=== PATIENT | male | born 1945 | race Caucasian/White ===

== ENCOUNTER 2017-07-22 12:07 | Inpatient (IN) | payer OTHER ==
[2017-07-22] MEDS ORDERED: NS 1,000 ML IV ONE (12:49)
--- NOTE | 2017-07-22 12:53 | EDPHY ---
H & P Stated Complaint: Fever, h/a,ear pain x 4 days; concern because recent dental implant vs flu Time Seen by Provider: 07/22/17 12:40 HPI/ROS: CHIEF COMPLAINT: Fever, body aches HISTORY OF PRESENT ILLNESS: Patient is a 71-year-old man with a history of colon cancer in remission, coronary artery disease and a previous PE who is still on Eliquis. He reports that on Monday he had a dental implant placed on the right maxillary side of his mouth. On Monday he started having body aches that he assumed were from being tense in the chair but then he developed a fever Monday and today. He states that his T-max was 105 degrees yesterday. He denies chest pain or shortness of breath or hemoptysis which she had with his previous PE. His Eliquis was held for the procedure for 4 days. He resumed on Monday. He has not had any leg pain or swelling. He also complains of headaches primarily in the frontal aspect of his head and both ears. He had sinus congestion on Monday but that resolved with nasal spray. He has not had a sore throat or cough. He was concerned that he might have the flu. He does not have any swelling or pain around the dental implant. He has diffuse muscle aches primarily in the back and large muscle groups but also some mild neck stiffness. REVIEW OF SYSTEMS: Constitutional: See HPI EENTM: See HPI denies: blurred vision, double vision, nose congestion Respiratory: denies: cough, shortness of breath Cardiac: denies: chest pain, irregular heart rate, lightheadedness, palpitations Gastrointestinal/Abdominal: denies: abdominal pain, diarrhea, nausea, vomiting, blood streaked stools Genitourinary: denies: dysuria, frequency, hematuria, pain Musculoskeletal: See HPI Skin: denies: lesions, rash, jaundice, bruising Neurological: denies: headache, numbness, paresthesia, tingling, dizziness, weakness Hematologic/Lymphatic: denies: blood clots, easy bleeding, easy bruising Immunologic/allergic: denies: HIV/AIDS, transplant EXAM: GENERAL: Well-appearing, well-nourished and in no acute distress. HEAD: Atraumatic, normocephalic. EYES: Pupils equal round and reactive to light, extraocular movements intact, sclera anicteric, conjunctiva are normal. ENT: Dental implant visible, no surrounding swelling. TMs normal, nares patent , oropharynx clear without exudates. Moist mucous membranes. NECK: Normal range of motion, supple without lymphadenopathy or JVD. LUNGS: Breath sounds clear to auscultation bilaterally and equal. No wheezes rales or rhonchi. HEART: Regular rate and rhythm without murmurs, rubs or gallops. ABDOMEN: Soft, nontender, normoactive bowel sounds. No guarding, no rebound. No masses appreciated. BACK: No CVA tenderness, no spinal tenderness, step-offs or deformities EXTREMITIES: Normal range of motion, no pitting or edema. No clubbing or cyanosis. NEUROLOGICAL: Cranial nerves II through XII grossly intact. Normal speech, normal gait. 5/5 strength, normal movement in all extremities, normal sensation PSYCH: Normal mood, normal affect. SKIN: Warm, dry, normal turgor, no visible rashes or lesions. Source: Patient, Family Exam Limitations: No limitations - Personal History Current Tetanus Diphtheria and Acellular Pertussis (TDAP): Unsure - Medical/Surgical History Hx Asthma: No Hx Chronic Respiratory Disease: No Hx Diabetes: No Hx Cardiac Disease: No Hx Renal Disease: No Hx Cirrhosis: No Hx Alcoholism: No Hx HIV/AIDS: No Hx Splenectomy or Spleen Trauma: No Other PMH: COLON CA-SX 2010-ON REMISSION,NO OTHER TXT. SILENT M.I.-2010 ON METOPROLOL.HTN,GOUT-ON MEDS.PNA.SINUS INFXN. PE - Social History Smoking Status: Never smoked Alcohol Use: Sober Drug Use: None Constitutional: Initial Vital Signs Temperature (C) 36.9 C 07/22/17 12:12 Heart Rate 88 07/22/17 12:12 Respiratory Rate 18 07/22/17 12:12 Blood Pressure 137/90 H 07/22/17 12:12 O2 Sat (%) 94 07/22/17 12:12 O2 Delivery Mode Room Air Allergies/Adverse Reactions: levofloxacin Allergy (Verified 07/22/17 17:36) Home Medications: Medication Instructions Recorded Allopurinol [Allopurinol 300 MG 300 mg PO HS 11/24/14 (RX)] Metoprolol Succinate Xr [Toprol Xl 25 mg PO DAILY@20 11/24/14 25 mg (*)] Acetaminophen [Tylenol 325mg (*)] 650 mg PO Q4 PRN MDD 3 grams 07/22/17 Amoxicillin Trihydrate 500 mg PO Q8H 07/22/17 [Amoxicillin] Apixaban [Eliquis] 2.5 mg PO BID 07/22/17 Atorvastatin Calcium [Lipitor 10 10 mg PO HS 07/22/17 mg (*)] Benzadrex (Propyylhexedrine 250mg) 2 inh EACHNARE Q2H PRN 07/22/17 Losartan Potassium [Cozaar 50 mg 50 mg PO HS 07/22/17 (*)] Olopatadine HCl [Patanase] 2 sprays EACHNARE DAILY PRN 07/22/17 Triamcinolone Acetonide [Nasacort] 2 sprays EACHNARE HS PRN 07/22/17 Medical Decision Making - Diagnostics EKG Interpretation: An EKG obtained and was read and documented in trace view. Please see trace view for full reading and report. , sinus rhythm with right bundle branch block , similar to previous Imaging Results: Imaging Impressions Chest X-Ray 07/22/17 12:50 Impression: Nothing acute identified. Head CT 07/22/17 12:54 Impression: Head CT normal for age. 2. CT of the Face, with contrast Indication: Fever, headache, ear pain, recent dental implant Technique: 0.625 mm thick collimated slices were obtained through the face from just below the mandible to above the frontal sinuses. 90 mL of Isovue-300 was injected intravenously without complication using a power injector. The data was reconstructed in the sagittal and coronal planes. Dose reduction techniques were utilized. Findings: There is a prominent beam hardening artifact in the posterior left maxilla related to dental work, that obscures the adjacent and local tissues. There are bilateral anterior maxillary tooth implants (#5 and #12) and mandibular teeth (#19 and #30) that appear intact. No soft tissue abscess is identified in the visible soft tissues. Overall mineralization looks normal. There is no upper cervical adenopathy. The maxillary and ethmoid sinuses are normally aerated. There are 2 retention cysts in the left sphenoid sinus. The right sphenoid sinus is normally aerated. Impression: No evidence for infection, with a caveat that a large area of the posterior left maxilla is obscured by left posterior mandibular dental hardware. Results called to Dr. Simon at 2:51 PM. General information for patients regarding this examination can be found at [email or web address]. If you have questions or comments about this report, please contact me at ([email or web address]) or [phone] (cell). Face CT 07/22/17 12:56 Impression: Head CT normal for age. 2. CT of the Face, with contrast Indication: Fever, headache, ear pain, recent dental implant Technique: 0.625 mm thick collimated slices were obtained through the face from just below the mandible to above the frontal sinuses. 90 mL of Isovue-300 was injected intravenously without complication using a power injector. The data was reconstructed in the sagittal and coronal planes. Dose reduction techniques were utilized. Findings: There is a prominent beam hardening artifact in the posterior left maxilla related to dental work, that obscures the adjacent and local tissues. There are bilateral anterior maxillary tooth implants (#5 and #12) and mandibular teeth (#19 and #30) that appear intact. No soft tissue abscess is identified in the visible soft tissues. Overall mineralization looks normal. There is no upper cervical adenopathy. The maxillary and ethmoid sinuses are normally aerated. There are 2 retention cysts in the left sphenoid sinus. The right sphenoid sinus is normally aerated. Impression: No evidence for infection, with a caveat that a large area of the posterior left maxilla is obscured by left posterior mandibular dental hardware. Results called to Dr. Simon at 2:51 PM. General information for patients regarding this examination can be found at [email or web address]. If you have questions or comments about this report, please contact me at [phone]([email or web address]) or [phone] (cell). Imaging: Discussed imaging studies w/ environmental services worker Radiologist ED Course/Re-evaluation: Patient's D-dimer is age adjusted negative. He also is not hypoxic, tachypneic , short of breath or having hemoptysis. 5:00 p.m. the patient's temperature is gone up to 39.5. The Tylenol he took this morning is wearing off. He is complaining of worsening headache. He is not a candidate for lumbar puncture currently because of the Eliquis. I recommended we treat him with antibiotics and admission and hold his Eliquis for possible LP tomorrow or the next day. He and his are agreeable with this plan. 5:15 p.m. I discussed the case with Dr. Zapata who will admit. Differential Diagnosis: Partial list of the Differential diagnosis considered include but were not limited to; viral meningitis, bacterial meningitis, sepsis, influenza and although unlikely based on the history and physical exam, I also considered pneumonia, urinary tract infection. I discussed these differential diagnoses and the plan with the patient as well as the usual and expected course. The patient understands that the diagnosis is provisional and that in medicine we are not always correct and that further workup is often warranted. Usual and customary warnings were given. All of the patient's questions were answered. The patient was instructed to return to the emergency department should the symptoms at all worsen or return, otherwise to followup with the physician as we discussed. - Data Points Laboratory Results: Laboratory Results 07/22/17 14:41 07/22/17 13:24 07/22/17 07/22/17 07/22/17 15:25 15:25 15:11 WBC RBC Hgb Hct MCV MCH MCHC RDW Plt Count MPV Neut % (Auto) Lymph % (Auto) [place] % (Auto) Eos % (Auto) Baso % (Auto) Nucleat RBC Rel Count Absolute Neuts (auto) Absolute Lymphs (auto) Absolute Monos (auto) Absolute Eos (auto) Absolute Basos (auto) Absolute Nucleated RBC Immature Gran % Immature Gran # PT INR APTT D-Dimer VBG Lactic Acid Sodium Potassium Chloride Carbon Dioxide Anion Gap BUN Creatinine Estimated GFR Glucose Calcium Total Bilirubin Conjugated Bilirubin Unconjugated Bilirubin AST ALT Alkaline Phosphatase Total Protein Albumin Urine Color YELLOW Urine Appearance CLEAR Urine pH 5.0 (5.0-7.5) Ur Specific [place] > 1.035 H (1.002-1.030) Urine Protein NEGATIVE (NEGATIVE) Urine Ketones NEGATIVE (NEGATIVE) Urine Blood NEGATIVE (NEGATIVE) Urine Nitrate NEGATIVE (NEGATIVE) Urine Bilirubin NEGATIVE (NEGATIVE) Urine Urobilinogen NEGATIVE EU EU (0.2-1.0) Ur Leukocyte Esterase NEGATIVE (NEGATIVE) Urine RBC 3-5 /hpf H /hpf (0-3) Urine WBC 1-3 /hpf /hpf (0-3) Ur Epithelial Cells TRACE /lpf /lpf (NONE-1+) Urine Mucus TRACE /lpf /lpf (NONE-1+) Urine Glucose NEGATIVE (NEGATIVE) Nasal Influenza A PCR NEGATIVE FOR FLU A (NEGATIVE) Nasal Influenza B PCR NEGATIVE FOR FLU B (NEGATIVE) Group A Strep Screen NEGATIVE (NEGATIVE) 07/22/17 07/22/17 07/22/17 14:41 13:24 13:24 WBC 9.35 10^3/uL 10^3/uL (3.80-9.50) RBC 5.02 10^6/uL 10^6/uL (4.40-6.38) Hgb 15.7 g/dL g/dL (13.7-17.5) Hct 45.5 % % (40.0-51.0) MCV 90.6 fL fL (81.5-99.8) MCH 31.3 pg pg (27.9-34.1) MCHC 34.5 g/dL g/dL (32.4-36.7) RDW 13.6 % % (11.5-15.2) Plt Count 157 10^3/uL 10^3/uL (150-400) MPV 10.4 fL fL (8.7-11.7) Neut % (Auto) 65.6 % % (39.3-74.2) Lymph % (Auto) 21.0 % % (15.0-45.0) [place] % (Auto) 10.7 % % (4.5-13.0) Eos % (Auto) 1.1 % % (0.6-7.6) Baso % (Auto) 0.9 % % (0.3-1.7) Nucleat RBC Rel Count 0.0 % % (0.0-0.2) Absolute Neuts (auto) 6.14 10^3/uL 10^3/uL (1.70-6.50) Absolute Lymphs (auto) 1.96 10^3/uL 10^3/uL (1.00-3.00) Absolute Monos (auto) 1.00 10^3/uL H 10^3/uL (0.30-0.80) Absolute Eos (auto) 0.10 10^3/uL 10^3/uL (0.03-0.40) Absolute Basos (auto) 0.08 10^3/uL 10^3/uL (0.02-0.10) Absolute Nucleated RBC 0.00 10^3/uL 10^3/uL (0-0.01) Immature Gran % 0.7 % % (0.0-1.1) Immature Gran # 0.07 10^3/uL 10^3/uL (0.00-0.10) PT INR APTT D-Dimer VBG Lactic Acid 1.2 mmol/L mmol/L (0.7-2.1) Sodium 139 mEq/L mEq/L (135-145) Potassium 4.4 mEq/L mEq/L (3.3-5.0) Chloride 99 mEq/L mEq/L (97-110) Carbon Dioxide 26 mEq/l mEq/l (22-31) Anion Gap 14 mEq/L mEq/L (8-16) BUN 17 mg/dL mg/dL (7-23) Creatinine 1.1 mg/dL mg/dL (0.7-1.3) Estimated GFR > 60 Glucose 95 mg/dL mg/dL (70-100) Calcium 9.4 mg/dL mg/dL (8.5-10.4) Total Bilirubin 1.2 mg/dL mg/dL (0.1-1.4) Conjugated Bilirubin 0.6 mg/dL H mg/dL (0.0-0.5) Unconjugated Bilirubin 0.6 mg/dL mg/dL (0.0-1.1) AST 39 IU/L IU/L (17-59) ALT 36 IU/L IU/L (21-72) Alkaline Phosphatase 41 IU/L IU/L (38-126) Total Protein 7.7 g/dL g/dL (6.3-8.2) Albumin 4.6 g/dL g/dL (3.5-5.0) Urine Color Urine Appearance Urine pH Ur Specific [place] Urine Protein Urine Ketones Urine Blood Urine Nitrate Urine Bilirubin Urine Urobilinogen Ur Leukocyte Esterase Urine RBC Urine WBC Ur Epithelial Cells Urine Mucus Urine Glucose Nasal Influenza A PCR Nasal Influenza B PCR Group A Strep Screen 07/22/17 13:24 WBC RBC Hgb Hct MCV MCH MCHC RDW Plt Count MPV Neut % (Auto) Lymph % (Auto) [place] % (Auto) Eos % (Auto) Baso % (Auto) Nucleat RBC Rel Count Absolute Neuts (auto) Absolute Lymphs (auto) Absolute Monos (auto) Absolute Eos (auto) Absolute Basos (auto) Absolute Nucleated RBC Immature Gran % Immature Gran # PT 13.8 SEC SEC (12.0-15.0) INR 1.04 (0.83-1.16) APTT 23.9 SEC SEC (23.0-38.0) D-Dimer 0.64 ug/mLFEU H ug/mLFEU (0.00-0.50) VBG Lactic Acid Sodium Potassium Chloride Carbon Dioxide Anion Gap BUN Creatinine Estimated GFR Glucose Calcium Total Bilirubin Conjugated Bilirubin Unconjugated Bilirubin AST ALT Alkaline Phosphatase Total Protein Albumin Urine Color Urine Appearance Urine pH Ur Specific [place] Urine Protein Urine Ketones Urine Blood Urine Nitrate Urine Bilirubin Urine Urobilinogen Ur Leukocyte Esterase Urine RBC Urine WBC Ur Epithelial Cells Urine Mucus Urine Glucose Nasal Influenza A PCR Nasal Influenza B PCR Group A Strep Screen Medications Given: Discontinued Medications Acetaminophen (Tylenol) 1,000 mg PO EDNOW ONE Stop: 07/22/17 17:02 Last Admin: 07/22/17 17:27 Dose: 1,000 mg Sodium Chloride (Ns) 1,000 mls @ 0 mls/hr IV EDNOW ONE; Wide Open PRN Reason: Protocol Stop: 07/22/17 12:50 Last Admin: 07/22/17 15:08 Dose: 1,000 mls Ceftriaxone Sodium 2 gm/ (Sterile Water) 20 mls @ 300 mls/hr IV EDNOW ONE Stop: 07/22/17 17:18 Last Admin: 07/22/17 17:27 Dose: 20 mls Departure - Departure Disposition: [facility] Clinical Impression: Fever Qualifiers: Fever type: unspecified Qualified Code(s): R50.9 - Fever, unspecified Headache Qualifiers: Headache type: unspecified Headache chronicity pattern: acute headache Intractability: not intractable Qualified Code(s): R51 - Headache Condition: Fair
--- NOTE | 2017-07-22 13:05 | CPEKG ---
Heart Rate: 75 RR Interval: 800 P-R Interval: 204 QRSD Interval: 146 QT Interval: 404 QTC Interval: 452 P [place]: 47 QRS [place]: -72 T Wave [place]: 4 EKG Severity - ABNORMAL ECG - EKG Impression: SINUS RHYTHM EKG Impression: RBBB AND LAFB EKG Impression: LATERAL INFARCT, OLD EKG Impression: Similar to previous Electronically Signed By: James Simon 22-Jul-2017 13:24:00
[2017-07-22 13:48] LABS: INR 1.04 (0.83-1.16); PROTIME(PATIENT) 13.8 SEC (12.0-15.0)
[2017-07-22] MEDS ORDERED: IOPAMIDOL (ISOVUE 370) 100 ML BTL IV ONE (13:56)
[2017-07-22] MEDS ORDERED: IOPAMIDOL (ISOVUE-300) 100 ML BTL ONE (13:56)
[2017-07-22 14:54] LABS: PLATELET COUNT 157 10^3/uL (150-400)
[2017-07-22] MEDS ORDERED: ACETAMINOPHEN 500 MG TAB PO ONE (17:01)
[2017-07-22] MEDS ORDERED: cefTRIAXone 2 GM in STERILE WATER INJ 20 ML IV ONE (17:15)
[2017-07-22] MEDS ORDERED: cefTRIAXone 1 GM/DEXTROSE 1 GM/50 ML BAG IV ONE (17:22)
[2017-07-22] MEDS ORDERED: ACETAMINOPHEN 500 MG TAB ONE (17:29)
[2017-07-22] MEDS ORDERED: ONDANSETRON 4 MG/2 ML VIAL IVP PRN (18:41)
[2017-07-22] MEDS ORDERED: oxyCODONE IR 5 MG TAB PO PRN (18:41)
[2017-07-22] MEDS ORDERED: ZOLPIDEM TARTRATE 5 MG TAB PO PRN (18:41)
[2017-07-22] MEDS ORDERED: PROMETHAZINE HCL 25 MG/ML INJ IVP PRN (18:41)
[2017-07-22] MEDS ORDERED: ONDANSETRON DISINTEGRATING 4 MG TAB PO PRN (18:41)
[2017-07-22] MEDS ORDERED: IBUPROFEN 200 MG TAB PO PRN (18:41)
[2017-07-22] MEDS ORDERED: OLOPATADINE HCL EACHNARE PRN (18:43)
[2017-07-22] MEDS ORDERED: TRIAMCINOLONE ACETONIDE EACHNARE PRN (18:43)
[2017-07-22] MEDS ORDERED: [UNRECOGNIZED DRUG - OTHER] EACHNARE PRN (18:43)
[2017-07-22] MEDS ORDERED: NS 1,000 ML IV SCH (18:45)
[2017-07-22] MEDS ORDERED: METOPROLOL SUCCINATE XR 25 MG TAB PO SCH (20:00)
--- NOTE | 2017-07-22 20:53 | GHP ---
[f rep st] HISTORY AND PHYSICAL DATE OF ADMISSION: 07/22/2017 CHIEF COMPLAINT: Fever. HISTORY OF PRESENT ILLNESS: This is a 71-year-old man, past medical history that includes hypertensi on and colon cancer who presents with 3 days of fever, generalized body aches and pains, and headache . The patient notes that this all began shortly after undergoing a dental implant procedure jimmie parnell. He notes that initially it was largely just body aches, which he assumed was due to being tense d uring the dental procedure. In the coming days, however, he began to develop fever with temperatures up to the mid 100s. He also had some generalized body aches and pains and generalized weakness and malaise. He notes he has also had relatively severe headache largely associated with the fevers. He denies shortness of breath, cough, urinary symptoms, abdominal pain, nausea, or vomiting. He did tr caitlyn a couple weeks ago to [place], but otherwise has not had any recent travel. He denies any u sual exposures to things like mosquitos, etc. that he is aware of. PAST MEDICAL HISTORY: Includes: 1. Hypertension. 2. Gout. 3. Colon cancer treated with surgery that did not require chemo or radiation. 4. PE. 5. Coronary artery disease. PAST SURGICAL HISTORY: 1. Recent dental implant. 2. Colon resection. FAMILY HISTORY: This was reviewed and is noncontributory. SOCIAL HISTORY: The patient drinks a few times per week. Denies history of ever smoking. No illici t's. REVIEW OF SYSTEMS: A 10-point review of systems obtained, negative except as per HPI. MEDICATIONS: Include: 1. Amoxicillin prescribed status post dental surgery. 2. Metoprolol. 3. Losartan. 4. Tylenol. 5. Triamcinolone. 6. Olopatadine. 7. Atorvastatin. 8. Eliquis. 9. Allopurinol. 10. Benzedrex. CLINICAL DATA: Labs reviewed and notable for a completely normal CBC. Coags are normal. Chemistry is unremarkable including LFTs. Urinalysis is unremarkable. IMAGING: Chest x-ray personally reviewed and interpreted, is showing no acute findings. Face and he ad CT are both unremarkable without any source of fever. EKG personally reviewed and interpreted, shows a right bundle branch block, left anterior fascicular block, and evidence for an old lateral infarct. ASSESSMENT AND PLAN: This is a 71-year-old man, past medical history that includes hypertension, col on cancer, and coronary artery disease, presenting with 3 days of fever, headache, and body aches and pains. 1. Fever without any localizing symptoms. He is nontoxic appearing, but states that he feels quite terrible. Plan was for LP to be performed, however, patient is currently on Eliquis and therefore th at was deferred. At this point, plan will be to monitor overnight and if fever continues and no othe r source is identified, proceed with a lumbar puncture in the morning. Suspect if this was a meningi tis, it would be more likely a viral meningitis given the patient is relatively asymptomatic neurolog ically. He has been started on ceftriaxone in the ER, and given ongoing uncertainty regarding his di agnosis, we will continue ceftriaxone with the addition of vancomycin and ampicillin for the time jacky ng. If LP should return with low likelihood of this being a bacterial meningitis, these could be dis continued first thing tomorrow morning. We will also ask ID for consultation. 2. Pulmonary embolism. This does seem to be a remote PE for which patient remains on anticoagulatio n. This will be held for a lumbar puncture to be performed in the morning. We will ask the patient to follow up with his PCP to determine whether this is appropriate given the time frame. 3. Hypertension. BP mildly elevated. We will continue patient's usual medications, which include l osartan and metoprolol. 4. Gout. We will continue patient's allopurinol. 5. Hyperlipidemia. We will continue atorvastatin. 6. History of colon cancer. This is presumably cured by surgical resection. 7. Observation status. Suspect patient will require less than 48 hour stay for evaluation and manag ement of above. 8. Patient is new to my care. Care plan reviewed with the ER doc including plan for lumbar puncture to be performed in the morning. Old records reviewed and summarized as per HPI and past medical his tory. /[id number]/MODL
[2017-07-22] MEDS ORDERED: APIXABAN 2.5 MG TAB PO SCH (21:00)
[2017-07-22] MEDS: ALLOPURINOL 300 MG TAB PO SCH (21:45)
[2017-07-22] MEDS: ATORVASTATIN CALCIUM 10 MG TAB PO SCH (21:45)
[2017-07-22] MEDS: LOSARTAN POTASSIUM 50 MG TAB PO SCH (21:45)
[2017-07-22] MEDS: VANCOMYCIN HCL/NORMAL SALINE 250 ML IV SCH (21:46)
[2017-07-23] MEDS: AMPICILLIN SODIUM 1 GM in NS 50 ML IV SCH ×2 (00:19→07:08)
[2017-07-23 04:50] LABS: PLATELET COUNT 149 10^3/uL (150-400)
[2017-07-23] MEDS: ACETAMINOPHEN 325 MG TAB PO PRN ×4 (07:08→22:31)
[2017-07-23] MEDS: cefTRIAXone 2 GM in STERILE WATER INJ 20 ML IV SCH (08:00)
[2017-07-23] MEDS: VANCOMYCIN HCL/NORMAL SALINE 250 ML IV SCH (08:23)
[2017-07-23] MEDS ORDERED: ENOXAPARIN 40 MG/0.4 ML SYR SC SCH (09:00)
--- NOTE | 2017-07-23 10:20 | GCON ---
[f rep st] CONSULTATION INFECTIOUS DISEASE CONSULT DATE OF CONSULTATION: 07/23/2017 REFERRING PHYSICIAN: Shaun Rice MD REASON FOR CONSULT: To assist in the management of this 71-year-old male with fever, headache and myalgias after recent dental implant. HISTORY OF PRESENT ILLNESS: The patient is a very pleasant 71-year-old male whose previous medical history is notable for the followin. History of colon cancer diagnosed in 2010. The patient states that he had noticed changes in his bowel movements and was overdue for a screening colonoscopy. The colon cancer was picked up on colonoscopy. He underwent partial hemicolectomy and did not require chemotherapy. He is considered cured. 2. Gout. 3. History of pulmonary embolus in 2014, on Eliquis. 4. Coronary artery disease. 5. Hypertension. 6. Seasonal allergies. PREVIOUS SURGICAL HISTORY: 1. Dental implants as I will outline below. 2. Hemicolectomy 2010. Regarding his present issues, the patient states that this past Monday, he underwent placement of a new dental implant in tooth #5 on the top right. He states that his oral surgeon is Dr. Osbaldo Sol at [facility]. He also states that at the same time he underwent a "titanium healing abutment" of tooth #30 on the bottom lower right. He states that this was uncomplicated and was done under local anesthesia. The patient states that he was started on amoxicillin 500 mg on the day of surgery, 3 times a day, and was told to take this for 10 days. He states that he was fine after surgery, then Monday, woke up with exquisite myalgias in his back, arms and legs. He thought it was related to being clenched up and tense in the dental chair. He had no URI symptoms at that point in time or fever. Then, the patient continued to feel poorly, and on bought a temporal thermometer and states that he had a temperature to 105. He felt chilled, but no rigors per se. He continued to have myalgias. He also at the same time developed a frontal headache. Because he continued to feel unwell with myalgias, the patient presented to [facility] yesterday. He states that he went to the emergency room because he states that the symptoms were very similar to his pulmonary embolus back in 2014, when he had flu-like symptoms as well. That being said, at that time, the patient was exquisitely short of breath. He denies any shortness of breath now. Of note, he does state that he has developed some worsening nasal congestion over the past 48 hours, along with the other symptoms of myalgias. He states that he normally has seasonal allergies, but these are quite different. In the emergency room, the patient's temperature was 37.8. Vital signs were otherwise stable. Chest x-ray revealed no evidence of pneumonia. A head CT done without contrast was normal. A CT of the face with contrast revealed no evidence of infection with a caveat that a large area of the posterior left maxilla was obscured by left posterior mandibular dental hardware. There is no evidence of sinusitis per se. Two retention cysts were noted in the left sphenoid sinus. The patient was going to have a spinal tap, but this was precluded by Eliquis. He was admitted to the floor and started on broad-spectrum antibiotics for bacterial meningitis in the form of vancomycin, ampicillin, and ceftriaxone. I am now asked to assist in his management. Speaking with the patient today, he states that his headache is improving. His myalgias have also gotten better. He does have significant nasal congestion, but denies sore throat or cough or shortness of breath. He denies any rash, nausea, vomiting, abdominal pain, dysuria, or other. He has not been confused as corroborated by his . EXPOSURE HISTORY: The patient lives in [place] with his . He has no pets. 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 Recent travel to [place], [place], 2 weeks ago, where he stayed in a hotel. He was there for 3 days for his sister's (she from congestive heart failure). While there, he had no unusual exposures and was not exposed to anyone ill. He ate some shrimp and crawfish, but did not go swimming or sustain any insect bites or other. Here, he denies any rodent exposure. He has not been in any crawl spaces. He denies ingestion of unpasteurized foods, soft cheeses, or exposure to livestock or other animals. No water exposure other than a shower. The patient states that he has not been gardening or mulching. REVIEW OF SYSTEMS: Notable for the above. Otherwise, 10 systems reviewed and all are negative. He denies any antecedent weight loss, anorexia or other. PREVIOUS MEDICAL HISTORY: As noted above. MEDICATIONS PRIOR TO ADMISSION: Included Eliquis, Lopressor, atorvastatin, Nasacort, Patanase, and some other seasonal allergy medications. CURRENT MEDICATIONS: Medications presently include atorvastatin 10 mg h.s., ampicillin 1 g IV q.6 hours, ceftriaxone 2 g IV daily, vancomycin 1 g IV q.12 hours, Ambien, oxycodone, and Toprol-XL 25 mg daily, Cozaar 50 mg h.s., allopurinol 300 mg h.s. SOCIAL HISTORY: As outlined above. The patient has never lived overseas, other than [place] when he was small as his father was in the [employer]. He has never lived in a developing nation. He smokes occasional marijuana and ingests it as well, but gets it from a reputable source. No tobacco. Rare alcohol. He is monogamous with his . Exposure history otherwise as outlined above. Travel to [place] 1 year ago and [place] in March. FAMILY HISTORY: Notable for a sister who recently from complications related to CHF. The patient has a 33-year-old daughter who is healthy. PHYSICAL EXAM: VITAL SIGNS: T current is 38, T-max 38.5, heart rate 100, blood pressure 135/83, 92% on room air. GENERAL: Tired-appearing gentleman, but nontoxic. Sounds congested and is sneezing and snuffing during my interview. HEAD: Atraumatic, normocephalic. EYES: Pupils equal, round, reactive to light. No photophobia. Extraocular movements are intact. No conjunctival injection or icterus or petechiae. NOSE: No discharge from the nares or sinus process tenderness. EARS: Tympanic membranes are clear bilaterally with no tug tenderness. OROPHARYNX: Without any lesions whatsoever. No posterior oropharyngeal erythema. MOUTH: The patient has a dental implant in tooth #5. I did put my fingers in his mouth and there was no evidence of an apical or periapical abscess or tooth tenderness or implant tenderness whatsoever. His implant in the bottom tooth #30 is unrevealing as well. No tenderness whatsoever around the gumline. NECK: Supple with no stiffness whatsoever. He has no preauricular, posterior auricular, or cervical lymphadenopathy. CARDIOVASCULAR: Distant heart sounds. No rubs, gallops, or murmurs audible. LUNGS: Clear to auscultation bilaterally. No rales, rhonchi, or wheeze. No increased respiratory effort. ABDOMEN: Soft. No organomegaly or tenderness to palpation. GENITALIA: No obvious abnormality. EXTREMITIES: No clubbing, cyanosis, edema, or rash. The patient has some dry skin in his pretibial areas. NEUROLOGIC: The patient is alert and oriented x3. No focal deficits. Cranial nerves 2-12 intact to exam. No evidence of embolic stigmata or arthritis. LABORATORY DATA: Microbiologic data, blood cultures x2 are pending. Respiratory PCR panel is negative. White blood cell count of 9.4, hematocrit 42, platelet count of 149, down from 157 on admission with 74% neutrophils, 13.9% lymphocytes. BUN and creatinine 17 and 1.1. Liver function tests are normal. Urinalysis shows a specific gravity of greater than 1.035, 3-5 red cells, no white cells. PCR is negative. Group A strep screen is negative. IMAGING: Radiographic data as outlined above. IMPRESSION: 71-year-old male, status post dental implantation on Monday, with abrupt onset 24 hours later of fevers, myalgias, and upper respiratory symptoms, as well as a headache. Given these constellation of symptoms, strongly suspect viral syndrome. No meningismus or photophobia on physical exam. Thus, bacterial meningitis, with pneumococcus, H flu, Neisseria, or listeria seems less likely. His exposure history is underwhelming for unusual illnesses such as Hantavirus , [place] or tick-borne illness [place]. Insofar as his dental implants are concerned, my suspicion for an odontogenic infection is low. PLAN: 1. At this point in time, I would prefer to see how he feels over the next day or so and hold off on a spinal tap for now. The patient agrees. 2. Discontinue vancomycin and ampicillin. Continue ceftriaxone for now (as a teaching point, please note the correct dose for bacterial meningitis for ceftriaxone is 2 g IV q.12 hours). That being said, Will continue ceftriaxone * q.24 hours*, as clinical suspicion for bacterial meningitis is low. If blood cultures remain negative for bacterial pathogens, would discontinue in short order. 3. Blood cultures are pending. 4. Send antibodies for West Nile, although this seems doubtful given concomitant upper respiratory symptoms. 5. Continue droplet precautions given suspicion for viral process is high. Thank you very much for consulting Infectious Disease. We will continue to follow this patient with you. /[id number]/MODL MTDD
[2017-07-23] MEDS ORDERED: IBUPROFEN 200 MG TAB PO PRN (11:41)
[2017-07-23] MEDS ORDERED: METOPROLOL SUCCINATE XR 25 MG TAB PO SCH (11:47)
--- NOTE | 2017-07-23 11:59 | ASMTCMCOM ---
CM Note CM Note Notes: Patient admitted for myalgias. He's being treated with IV Ceftriaxone to cover for possible bacterial meningitis, although at this point a viral etiology is suspected. ID is following. Patient is normally independent - lives with in [place]. I do not anticipate any discharge needs, but Case Management available if any arise. Date Signed: 07/23/2017 11:58 AM Electronically Signed By:Carmen Carias RN
[2017-07-23] MEDS: APIXABAN 2.5 MG TAB PO SCH ×2 (12:21→21:11)
--- NOTE | 2017-07-23 15:33 | HOSPPROG ---
Hospitalist Progress Note Assessment/Plan: Fever - Most consistent with viral etiology. Recent dental hardware increases risk for bacteremia, though pt treated with Amoxicillin post-procedure. CT pers reviewed/interpreted, no abscess. Discussed with ID, who feels we can defer LP at this time with lack of meningismus and minimal headache this am. Atbx narrowed to Ceftriaxone while awaiting BCx's. -send RVP (neg) -follow culture data -ceftriaxone daily -appreciate ID input PE - +H/O Factor V Leiden, on lifelong anticoagulation -resume eliquis Hypertension - adequate control, cont losartan and metoprolol Hyperlipidemia - cont statin Gout - cont allopurinol H/O colon cancer Full code Dispo - change to inpt for ongoing evaluation of fever Subjective: Pt feels better today. Denies headache currently. Myalgias improved. +fever this am. Reports some increased sinus congestion. No cough, CP or SOB. Objective: Vital Signs Temp Pulse Resp BP Pulse Ox 38.0 C 74 16 135/83 H 92 07/23/17 07:20 07/23/17 07:20 07/23/17 07:20 07/23/17 07:20 07/23/17 07:20 Microbiology 07/23/17 Unknown Respiratory Panel (PCR) - Final Nasal, Sinus - Other No Organism Detected Laboratory Results 07/23/17 04:40 07/22/17 07/23/17 07/24/17 05:59 05:59 05:59 Intake Total 1979 Balance 1979 PT 13.8 SEC (12.0-15.0) 07/22/17 13:24 INR 1.04 (0.83-1.16) 07/22/17 13:24 - Physical Exam Constitutional: no apparent distress Eyes: PERRL Ears, Nose, Mouth, Throat: moist mucous membranes Cardiovascular: regular rate and rhythym Respiratory: no respiratory distress, clear to auscultation Gastrointestinal: normoactive bowel sounds, soft, non-tender abdomen Skin: warm Musculoskeletal: full muscle strength Neurologic: AAOx3 Psychiatric: interacting appropriately ICD10 Worksheet Patient Problems: Problems Problem Status Onset Fever Acute Headache Acute Pulmonary embolism Acute
--- NOTE | 2017-07-23 16:13 | PDMN ---
Medical Necessity Medical necessity: C/M review: est. > 2 MN LOS for eval and TX of acute and persistent fever - most consistent with viral etiology, blood culture results pending, RVP negative, requiring Infectious Disease consult who feels can defer lumbar puncture at this time with lack of meningismus and minimal headache 07/23/2017 AM, ongoing IV Ceftriaxone daily, comorbid recent dental hardware increases risk for bacteremia, though patient treated with Amoxicillin post procedure, history of PE - positive history of Factor V Leiden on lifelong anticoagulation, hypertension, hyperlipidemia, gout, hisotyr of colon cancer per 07/23/2017 Hospitalist progress note.
[2017-07-23] MEDS: ATORVASTATIN CALCIUM 10 MG TAB PO SCH (21:10)
[2017-07-23] MEDS: LOSARTAN POTASSIUM 50 MG TAB PO SCH (21:11)
[2017-07-23] MEDS: ALLOPURINOL 300 MG TAB PO SCH (21:11)
[2017-07-24 07:15] VITALS: BP 135/85
[2017-07-24] MEDS: ACETAMINOPHEN 325 MG TAB PO PRN (07:16)
[2017-07-24] MEDS: APIXABAN 2.5 MG TAB PO SCH (08:31)
[2017-07-24] MEDS: cefTRIAXone 2 GM in STERILE WATER INJ 20 ML IV SCH (08:31)
--- NOTE | 2017-07-24 10:21 | GDS ---
[f rep st] DISCHARGE SUMMARY DISCHARGE DIAGNOSES: 1. Fever, likely secondary to viral syndrome, resolved. 2. Recent dental implants. 3. History of pulmonary embolism. 4. Factor V Leiden. 5. Hypertension. 6. Hyperlipidemia. 7. Gout. CONSULTANTS: Dr. Faiza Jackson, Infectious Disease. HISTORY: For details, please see history and physical dated July 22, 2017. In brief. The patient is a 71-year-old male with a history of hypertension, hyperlipidemia, and pulmonary embolism in the sett ing of factor V Leiden disorder, presents to the emergency department with fever. This was associate d with generalized body aches and headache. He was admitted to the hospital for further evaluation. HOSPITAL COURSE: Blood cultures were drawn in the emergency department. The patient was started on empiric treatment for possible meningitis. He was evaluated by Infectious Disease the following morn ing, and it was noted he had no meningismus or photophobia, and overall, his presentation did not sug gest bacterial meningitis. An infectious disease business analyst consultant opted to defer lumbar puncture. He had a head CT and facial CT, which were both negative for any acute infectious process. Specifically, th ere was no evidence of infection or abscess associated with his dental hardware. His blood cultures remained negative at nearly 48 hours at the time of discharge. He had no leukocytosis, a normal lact ate, negative respiratory viral pathogen panel negative, group A strep. West Nile virus antibodies r emain pending at discharge and should be followed up by his primary care physician. He has been afeb rile for over 24 hours at the time of discharge. His symptoms are nearly resolved. He was treated e mpirically with ceftriaxone, with persistent negative blood cultures and no obvious source of bacteri al infection. Ceftriaxone will be discontinued, and he will resume his oral amoxicillin as prescribe d by his dental provider. DISPOSITION: Patient is discharged home in stable condition. FOLLOWUP: 1. Dr. Kate Potts, primary care. 2. Dr. Lee Parkinson, dentist. 3. Dr. Osbaldo Villareal, periodontics. DISCHARGE MEDICATIONS: Please see [facility] for completed outpatient medication list. There are no n ew medications on discharge. Will continue all other outpatient medications as previously prescribed , including amoxicillin 500 mg p.o. q.8 hours for 10 more days. Copy requested to: Dr. Osbaldo Parkinson /[id number]/MODL
[2017-07-26 22:20] LABS: WEST NILE VIRUS IGG Negative (Negative); WEST NILE VIRUS IGM Negative (Negative)
== END 2017-07-24 11:14 | disposition home or self-care (01) | DRG 866 ==
LOC: UNDOADMOB 17:02 → OBSVTOIN 17:02 → INTOOBSV 17:02 → F3E 17:58 → OBSVTOIN 07-23 13:13 → UNDODISIN 07-24 11:14
PROVIDERS: ADMIT Internal Medicine; ATTEND Internal Medicine
DX: B34.9 Viral infection, unspecified (principal); I25.10 Atherosclerotic heart disease of native coronary artery without angina pectoris; I10 Essential (primary) hypertension; M10.9 Gout, unspecified; E78.5 Hyperlipidemia, unspecified; D68.2 Hereditary deficiency of other clotting factors; Z86.711 Personal history of pulmonary embolism; Z79.01 Long term (current) use of anticoagulants; Z85.038 Personal history of other malignant neoplasm of large intestine; I25.2 Old myocardial infarction
CPT/HCPCS: 96374; G0378; J0290; J0696; J3370; Q9967